=== PATIENT | female | born 1940 | race Caucasian/White ===

== ENCOUNTER → 2018-10-18 | Day surgery (SDC) | payer MEDICARE, OTHER ==
[~2018-10-18] MED LIST: IV RINGERS,LACTATED 1000ML 1,000 ML IV SCH; LEVO100T PO; LOSA-73 PO; METO25TA2 PO; OMEP20TA8 PO; PROPOFOL 40 ML IV ONE
[2018-10-18 13:50] VITALS: BP 135/65
--- NOTE | 2018-10-19 06:06 | HP ---
ADMIT DATE: 10/18/2018 REASON: History of colonic polyps. HISTORY OF PRESENT ILLNESS: The patient is a 78-year-old female whose past medical history is significant for hypothyroidism, hypertension, chronic reflux, colonic polyps, and is seen for interval colon exam. Bowel habits are regular without diarrhea or constipation. There has been no melena and no hematochezia. Weight and appetite have been stable. She is without additional complaints. PAST MEDICAL HISTORY: Hypothyroidism, hypertension, gastroesophageal reflux disease. ALLERGIES: CODEINE. MEDICATIONS: Include levothyroxine, losartan, metoprolol, and omeprazole. FAMILY AND SOCIAL HISTORY: She is an occasional drinker. Nonsmoker. PAST SURGICAL HISTORY: Status post hysterectomy. REVIEW OF SYSTEMS: Per records. PHYSICAL EXAMINATION: GENERAL: Reveals a well-nourished, well-developed female, alert, cooperative, in no acute distress. VITAL SIGNS: Temperature is 97.7, pulse 94, respiratory rate 20. HEENT: Normocephalic and atraumatic head. Pupils and extraocular muscles are not tested. Sclerae anicteric. NECK: Supple. LUNGS: Clear. CARDIOVASCULAR: Reveals an S1, S2 without S3, S4 or appreciable murmur. ABDOMEN: Soft abdomen, normal bowel sounds without appreciable hepatosplenomegaly. EXTREMITIES: Reveals no cyanosis, clubbing, edema. IMPRESSION: History of colonic polyps. Surveillance exam is recommended at this time. Risks and benefits of procedure including risk of hemorrhage and perforation were discussed. The patient is willing to proceed. LIZBET LUCAS MD DR: DIANN/fabian JOB#: [id number] / [id number]
== END | disposition home or self-care (01) ==
LOC: SURG 11:38
PROVIDERS: ATTEND Internal Medicine Gastroenterology
DX: Z12.11 Encounter for screening for malignant neoplasm of colon (principal); K57.30 Diverticulosis of large intestine without perforation or abscess without bleeding; K64.0 First degree hemorrhoids; I10 Essential (primary) hypertension; E03.9 Hypothyroidism, unspecified; K21.9 Gastro-esophageal reflux disease without esophagitis; Z86.010 Personal history of colon polyps; Z88.5 Allergy status to narcotic agent; Z79.899 Other long term (current) drug therapy; Z72.89 Other problems related to lifestyle; Z90.710 Acquired absence of both cervix and uterus; Z91.030 Bee allergy status
CPT/HCPCS: G0105; J2704; 45378